=== PATIENT | female | born 1940 | race Caucasian/White ===

== ENCOUNTER → 2018-04-10 17:40 | Outpatient (CLI) | payer MEDICARE, OTHER, SELFPAY ==
--- NOTE | 2018-04-10 17:44 | CT_ITS ---
STUDY: CT CHEST WITH CONTRAST REASON FOR EXAM: Female, 77 years old. Cough x1 month, history of breast cancer RADIATION DOSAGE (If Supplied By Facility): CTDIvol = ( 17.57 ) mGy, DLP = ( 796.93 ) mGycm TECHNIQUE: Transaxial imaging was performed following intravenous administration of 100 ml of Isovue 300 contrast material. Multiplanar coronal and sagittal images were reformatted. Individualized dose optimization techniques were used for this CT. COMPARISON: 2014 FINDINGS: The lungs are normal. There is no demonstrated pleural abnormality. Normal heart and pericardium. Sternal cerclage wires and vascular clips are present from a prior sternotomy and coronary artery bypass graft procedure (CABG). Normal mediastinum. Normal hilar regions. Normal enhanced pulmonary arteries. Normal aorta arch and descending thoracic aorta. There are multi-level degenerative changes of the thoracic spine. Limited cuts through the upper abdomen show fatty infiltration of the liver with nodular borders noted in the liver. Multiple gallstones are noted without evidence of cholecystitis. CT/Chest WITH Contrast IMPRESSION: No acute pulmonary process Calcified coronary vessels Fatty liver Cholelithiasis Electronically Signed: Christian Benavidez MD at 17:30 EST , Service support ,
== END ==
PROVIDERS: Family Provider Family Medicine; PCP Family Medicine; Referring Provider Family Medicine; Visit Provider Internal Medicine Medical Oncology
DX: R05 Cough (principal); Z85.3 Personal history of malignant neoplasm of breast
CPT/HCPCS: 71260; Q9967